=== PATIENT | female | born 1970 | race Caucasian/White ===

== ENCOUNTER → 2017-02-22 | Outpatient (REF) | payer BC | LOC: M SFHCWAGY 15:52 | PROVIDERS: ATTEND Nurse Practitioner Women's Health | DX: Z12.4 Encounter for screening for malignant neoplasm of cervix (principal) ==

== ENCOUNTER → 2018-04-02 | Outpatient (REF) | payer BC ==
[2018-04-02 13:18] LABS: IRON (FE) 44 UG/DL (50-170); PERCENT SATURATION 13.1 % (13.2-45.0); TOTAL IRON BINDING CAPACITY 337 UG/DL (250-450)
== END ==
LOC: M LAB REF 12:33
DX: D50.9 Iron deficiency anemia, unspecified (principal)
CPT/HCPCS: 83550

== ENCOUNTER → 2019-10-21 | Outpatient (REF) | payer BC ==
[2019-10-23 16:09] LABS: HPV HYBRID CAPTURE II Negative (Negative)
== END ==
LOC: M PLALAB 09:02
PROVIDERS: ATTEND Nurse Practitioner Women's Health
DX: Z12.4 Encounter for screening for malignant neoplasm of cervix (principal)
CPT/HCPCS: 87624; G0123

== ENCOUNTER → 2020-04-24 | Outpatient (CLI) | payer BC ==
--- NOTE | 2020-04-25 11:53 | REP ---
BILATERAL MAMMOGRAM WITH 3D TOMOSYNTHESIS: COMPARISON: 09/23/2009 Family history of breast cancer in paternal aunt. Moderate heterogeneous fibroglandular density is seen bilaterally with some mild progressive fatty replacement since the prior study. In the medial right breast an oval nodule is seen 8 mm in maximum diameter. This is not heavily seen on the MLO view. No other mass or architectural distortion is seen bilaterally. No suspicious clusters of microcalcifications are seen. IMPRESSION: BIRADS 0: BI-RADS/ACR category 0 mammogram, Incomplete: Need additional imaging evaluation and/or prior mammograms for comparison. ACR 0 incomplete. Oval nodular density medially right breast somewhat posteriorly. Maximum diameter is 8 mm. There is a suggestion of a fatty hilum and this may represent an intramammary lymph node. Recommend spot compression views and ultrasound to further evaluate. This mammogram was interpreted with the aid of an FDA-approved computer-aided detection system. A. Negative x-ray reports should not delay biopsy if a dominant or clinically suspicious mass is present. B. Four to eight percent of cancers are not identified by x-ray. C. Adenosis and dense breasts may obscure an underlying neoplasm. The patient states that she or he has not had a clinical breast exam in over a year. The patient letter being requested is M0.
== END ==
LOC: M WHC 15:15
PROVIDERS: ATTEND Nurse Practitioner Women's Health
DX: Z12.31 Encounter for screening mammogram for malignant neoplasm of breast (principal); Z85.3 Personal history of malignant neoplasm of breast

== ENCOUNTER → 2020-05-08 | Outpatient (CLI) | payer BC ==
--- NOTE | 2020-05-11 12:38 | REP ---
DIGITAL DIAGNOSTIC UNILATERAL RIGHT BREAST MAMMOGRAPHY WITH CAD AND FOCUSED RIGHT BREAST SONOGRAPHY: HISTORY: Screening mammography April 24, 2020 BIRADS category 0 due to a possible nodular density medially 8 mm in diameter. Diagnostic imaging was recommended. Comparison is also made with prior mammography from September 23, 2009. FINDINGS: Magnified focal spot compression CC, MLO and mediolateral views were obtained. The nodular opacity appears to be present medially on the craniocaudal view. It is not seen with confidence on the orthogonal views however. Rolled non-magnified craniocaudal images were obtained and these do not definitely identify the lung nodule either. Accordingly, the medial half of the right breast was scanned sonographically. SONOGRAPHIC FINDINGS: Heterogeneous fibroglandular background echotexture is seen. In the 3-o'clock position in the right breast medially, there is a 6 x 3 x 5 mm oval-shaped hypoechoic structure with well defined back wall enhanced through transmission consistent with a cyst. IMPRESSION: BIRADS category 2 benign findings. Repeat screening mammography recommended 1 year. This mammogram was interpreted with the aid of an FDA-approved computer-aided detection system. The patient states she had a clinical breast exam in October 2019. The patient letter being requested is M1. This patient's estimated Tyrer-Cuzick lifetime risk assessment for breast cancer is 14.2 %.
== END ==
LOC: M WHC 14:56
PROVIDERS: ATTEND Nurse Practitioner Women's Health
DX: R92.8 Other abnormal and inconclusive findings on diagnostic imaging of breast (principal)

== ENCOUNTER → 2021-10-26 | Outpatient (REF) | payer BC | LOC: M SFHCWAGY 17:24 | PROVIDERS: ATTEND Nurse Practitioner Women's Health | DX: Z12.4 Encounter for screening for malignant neoplasm of cervix (principal) | CPT/HCPCS: 87624; G0123 ==

== ENCOUNTER → 2023-06-22 | Outpatient (CLI) | payer BC | LOC: M WUC 10:35 | PROVIDERS: ATTEND Nurse Practitioner Family | DX: M79.645 Pain in left finger(s) (principal) ==

== ENCOUNTER → 2024-09-18 | Outpatient (CLI) | payer BC | LOC: M WUC 08:08 | PROVIDERS: ATTEND Nurse Practitioner Family | DX: M25.531 Pain in right wrist (principal) ==